=== PATIENT | male | born 1940 | race Two or more races ===

== ENCOUNTER 2021-08-23 13:23 | Inpatient (IN) | payer MEDICARE, MEDICAID ==
[2021-08-23] MEDS ORDERED: Sodium Chloride 0.9% 10 ML Syringe FLUSH PRN (13:26)
[2021-08-23] MEDS ORDERED: Sodium Chloride 0.9% 1,000 ML IV SCH (13:30)
[2021-08-23] MEDS ORDERED: cefTRIAXone 2 GM in Sodium Chloride 0.9% 100 ML IV ONE (15:07)
[2021-08-23] MEDS ORDERED: Sodium Chloride 0.9% 1,000 ML IV ONE (16:15)
[2021-08-23 16:32] LABS: CORONAVIRUS COVID-19 NAA POSITIVE (NEGATIVE)
[2021-08-23] MEDS ORDERED: Ondansetron 4 MG/2 ML SDV IV PRN (18:39)
[2021-08-23] MEDS ORDERED: Albuterol 0.083% 2.5 MG/3 ML Neb Soln NEB PRN (18:39)
[2021-08-23] MEDS: Dexamethasone 10 MG/ML SDV IVPUSH SCH (20:06)
[2021-08-23] MEDS: atorvaSTATin 20 MG Tab PO SCH (20:08)
[2021-08-23] MEDS ORDERED: LORazepam 2 MG/ML SDV IVPUSH PRN ×2 (20:20→23:50)
[2021-08-23] MEDS: Lactated Ringers 1,000 ML IV SCH (21:00)
[2021-08-23] MEDS: Insulin Lispro 100 Unit/ML 3 ML KwikPen SUBCUT SCH (22:30)
[2021-08-24 07:12] LABS: HEMOGLOBIN A1C 6.4 %
[2021-08-24] MEDS: Lactated Ringers 1,000 ML IV SCH ×3 (07:31→16:13)
[2021-08-24] MEDS: Insulin Lispro 100 Unit/ML 3 ML KwikPen SUBCUT SCH ×4 (08:41→21:42)
[2021-08-24] MEDS: HYDROmorphone 0.5 MG/0.5 ML Syringe IVPUSH PRN ×4 (08:42→20:16)
[2021-08-24] MEDS: Dexamethasone 10 MG/ML SDV IVPUSH SCH (08:43)
[2021-08-24] MEDS ORDERED: Enoxaparin 30 MG/0.3 ML Syringe SUBCUT SCH (09:00)
[2021-08-24] MEDS ORDERED: Enoxaparin 40 MG/0.4 ML Syringe SUBCUT SCH (09:00)
[2021-08-24] MEDS ORDERED: Zinc Sulfate 220 MG Cap PO SCH (13:00)
[2021-08-24] MEDS ORDERED: Heparin Sodium 5,000 Units/ML Vial IVPUSH ONE (13:15)
[2021-08-24] MEDS: Heparin Sodium/D5W 25,000 UNITS/500 ML BAG IV SCH (14:12)
[2021-08-24] MEDS: Azithromycin 500 MG in Sodium Chloride 0.9% 250 ML IV SCH (14:18)
[2021-08-24] MEDS: cefTRIAXone 2 GM in Sodium Chloride 0.9% 100 ML IV SCH (15:26)
[2021-08-24] MEDS: Dexamethasone 4 MG/ML SDV IV SCH (20:17)
[2021-08-24] MEDS: atorvaSTATin 20 MG Tab PO SCH ×2 (20:17→20:29)
[2021-08-24] MEDS: LORazepam 2 MG/ML SDV IVPUSH PRN (22:27)
[2021-08-25] MEDS: HYDROmorphone 0.5 MG/0.5 ML Syringe IVPUSH PRN ×8 (00:08→21:26)
[2021-08-25] MEDS: Insulin Lispro 100 Unit/ML 3 ML KwikPen SUBCUT SCH ×4 (08:40→21:30)
[2021-08-25] MEDS: Dexamethasone 4 MG/ML SDV IV SCH ×2 (08:41→21:25)
[2021-08-25] MEDS: QUEtiapine 25 MG Tab PO SCH ×2 (08:41→21:25)
[2021-08-25] MEDS ORDERED: Sennosides 8.6 MG Tab PO ONE (11:00)
[2021-08-25] MEDS ORDERED: REMDESIVIR 200 MG in Sodium Chloride 0.9% 250 ML IV ONE (12:00)
[2021-08-25] MEDS: Azithromycin 500 MG in Sodium Chloride 0.9% 250 ML IV SCH (14:04)
[2021-08-25] MEDS: cefTRIAXone 2 GM in Sodium Chloride 0.9% 100 ML IV SCH (15:22)
[2021-08-25] MEDS: LORazepam 2 MG/ML SDV IVPUSH PRN (15:47)
[2021-08-25] MEDS ORDERED: Heparin Sodium 5,000 Units/ML Vial IVPUSH ONE (16:45)
[2021-08-26] MEDS: HYDROmorphone 0.5 MG/0.5 ML Syringe IVPUSH PRN ×6 (00:44→22:07)
[2021-08-26] MEDS: Albuterol/Ipratropium 3.0-0.5 MG/3 ML Neb Soln NEB PRN ×2 (06:30→20:02)
[2021-08-26] MEDS: Insulin Lispro 100 Unit/ML 3 ML KwikPen SUBCUT SCH ×4 (07:08→21:05)
[2021-08-26] MEDS: Dexamethasone 4 MG/ML SDV IV SCH ×2 (09:18→20:15)
[2021-08-26] MEDS: QUEtiapine 25 MG Tab PO SCH ×2 (09:18→20:15)
[2021-08-26] MEDS: Cholecalciferol (Vitamin D3) 5,000 UNIT Tab PO SCH (09:18)
[2021-08-26] MEDS: REMDESIVIR 100 MG in Sodium Chloride 0.9% 250 ML IV SCH (13:00)
[2021-08-26] MEDS: Azithromycin 500 MG in Sodium Chloride 0.9% 250 ML IV SCH (14:56)
[2021-08-26] MEDS: Heparin Sodium/D5W 25,000 UNITS/500 ML BAG IV SCH (15:46)
[2021-08-26] MEDS: cefTRIAXone 2 GM in Sodium Chloride 0.9% 100 ML IV SCH (15:53)
[2021-08-26] MEDS: LORazepam 2 MG/ML SDV IVPUSH PRN (20:15)
[2021-08-27] MEDS: HYDROmorphone 0.5 MG/0.5 ML Syringe IVPUSH PRN ×9 (00:55→23:37)
[2021-08-27] MEDS: Insulin Lispro 100 Unit/ML 3 ML KwikPen SUBCUT SCH ×4 (08:38→21:08)
[2021-08-27] MEDS: Dexamethasone 4 MG/ML SDV IV SCH ×2 (08:39→20:01)
[2021-08-27] MEDS: Acetaminophen 325 MG Tab PO PRN (08:40)
[2021-08-27] MEDS: QUEtiapine 25 MG Tab PO SCH ×2 (08:41→20:01)
[2021-08-27] MEDS: Cholecalciferol (Vitamin D3) 5,000 UNIT Tab PO SCH (08:41)
[2021-08-27] MEDS: Enoxaparin 80 MG/0.8 ML Syringe SUBCUT SCH ×2 (11:14→21:09)
[2021-08-27] MEDS: REMDESIVIR 100 MG in Sodium Chloride 0.9% 250 ML IV SCH (11:17)
[2021-08-27] MEDS: cefTRIAXone 2 GM in Sodium Chloride 0.9% 100 ML IV SCH (14:09)
[2021-08-27] MEDS: Albuterol/Ipratropium 3.0-0.5 MG/3 ML Neb Soln NEB PRN (20:20)
[2021-08-28] MEDS: LORazepam 2 MG/ML SDV IVPUSH PRN ×5 (01:13→14:44)
[2021-08-28] MEDS: HYDROmorphone 0.5 MG/0.5 ML Syringe IVPUSH PRN ×7 (03:35→23:12)
[2021-08-28] MEDS: Cholecalciferol (Vitamin D3) 5,000 UNIT Tab PO SCH (08:00)
[2021-08-28] MEDS: Dexamethasone 4 MG/ML SDV IV SCH ×2 (08:00→20:17)
[2021-08-28] MEDS: QUEtiapine 25 MG Tab PO SCH ×2 (08:00→20:14)
[2021-08-28] MEDS: Insulin Lispro 100 Unit/ML 3 ML KwikPen SUBCUT SCH ×4 (08:02→23:14)
[2021-08-28] MEDS ORDERED: Magnesium Hydroxide 400 MG/5 ML Susp 30 ML Cup PO ONE (09:00)
[2021-08-28] MEDS ORDERED: Sodium Chloride 0.9% 0 ML ONE (10:44)
[2021-08-28] MEDS: Enoxaparin 80 MG/0.8 ML Syringe SUBCUT SCH ×2 (11:16→23:05)
[2021-08-28] MEDS: REMDESIVIR 100 MG in Sodium Chloride 0.9% 250 ML IV SCH (12:18)
[2021-08-28] MEDS: Acetaminophen 325 MG Tab PO PRN (20:18)
[2021-08-29] MEDS: Acetaminophen 325 MG Tab PO PRN ×3 (00:48→09:08)
[2021-08-29] MEDS: LORazepam 2 MG/ML SDV IVPUSH PRN ×3 (04:03→12:22)
[2021-08-29] MEDS: HYDROmorphone 0.5 MG/0.5 ML Syringe IVPUSH PRN ×6 (05:13→18:13)
[2021-08-29] MEDS: Albuterol/Ipratropium 3.0-0.5 MG/3 ML Neb Soln NEB PRN (08:45)
[2021-08-29] MEDS: Dexamethasone 4 MG/ML SDV IV SCH ×2 (09:07→20:22)
[2021-08-29] MEDS: Enoxaparin 80 MG/0.8 ML Syringe SUBCUT SCH (09:12)
[2021-08-29] MEDS: QUEtiapine 25 MG Tab PO SCH ×2 (09:12→20:01)
[2021-08-29] MEDS: Cholecalciferol (Vitamin D3) 5,000 UNIT Tab PO SCH (09:12)
[2021-08-29] MEDS: Insulin Lispro 100 Unit/ML 3 ML KwikPen SUBCUT SCH ×4 (09:13→21:27)
[2021-08-29] MEDS ORDERED: Bisacodyl 10 MG Supp RECTAL ONE (12:01)
[2021-08-29] MEDS: REMDESIVIR 100 MG in Sodium Chloride 0.9% 250 ML IV SCH (12:23)
[2021-08-29] MEDS ORDERED: OLANZapine 10 MG Vial IM ONE (19:45)
[2021-08-30] MEDS: Acetaminophen 325 MG Tab PO PRN ×3 (00:26→11:50)
[2021-08-30] MEDS: Enoxaparin 80 MG/0.8 ML Syringe SUBCUT SCH ×3 (00:36→21:10)
[2021-08-30] MEDS: HYDROmorphone 0.5 MG/0.5 ML Syringe IVPUSH PRN ×5 (03:17→22:28)
[2021-08-30] MEDS: Insulin Lispro 100 Unit/ML 3 ML KwikPen SUBCUT SCH ×3 (07:45→17:26)
[2021-08-30] MEDS: QUEtiapine 25 MG Tab PO SCH ×2 (07:48→10:36)
[2021-08-30] MEDS: Cholecalciferol (Vitamin D3) 5,000 UNIT Tab PO SCH ×2 (07:49→10:37)
[2021-08-30] MEDS: Dexamethasone 4 MG/ML SDV IV SCH ×3 (07:49→20:15)
[2021-08-30] MEDS: Albuterol/Ipratropium 3.0-0.5 MG/3 ML Neb Soln NEB PRN ×2 (13:35→19:46)
[2021-08-30] MEDS ORDERED: Dextrose 5%-Lactated Ringers 1,000 ML IV SCH (17:30)
[2021-08-30] MEDS: Acetaminophen 650 MG Supp RECTAL PRN (19:09)
[2021-08-30] MEDS: OLANZapine 10 MG Vial IM SCH (20:40)
[2021-08-31] MEDS: Insulin Lispro 100 Unit/ML 3 ML KwikPen SUBCUT SCH ×3 (00:23→13:19)
[2021-08-31] MEDS: Acetaminophen 650 MG Supp RECTAL PRN ×3 (00:52→23:34)
[2021-08-31] MEDS: HYDROmorphone 0.5 MG/0.5 ML Syringe IVPUSH PRN ×7 (02:45→23:30)
[2021-08-31] MEDS: Albuterol/Ipratropium 3.0-0.5 MG/3 ML Neb Soln NEB PRN (05:11)
[2021-08-31] MEDS: LORazepam 2 MG/ML SDV IVPUSH PRN ×2 (05:25→21:44)
[2021-08-31] MEDS: Dexamethasone 4 MG/ML SDV IV SCH ×2 (08:34→20:20)
[2021-08-31] MEDS: Enoxaparin 80 MG/0.8 ML Syringe SUBCUT SCH ×2 (09:41→21:44)
[2021-08-31] MEDS: OLANZapine 10 MG Vial IM SCH (20:34)
[2021-09-01] MEDS: LORazepam 2 MG/ML SDV IVPUSH PRN ×5 (01:16→19:33)
[2021-09-01] MEDS: HYDROmorphone 0.5 MG/0.5 ML Syringe IVPUSH PRN ×5 (02:46→21:19)
[2021-09-01] MEDS: Acetaminophen 650 MG Supp RECTAL PRN ×2 (05:49→10:48)
[2021-09-01] MEDS: Dexamethasone 4 MG/ML SDV IV SCH ×2 (08:23→20:09)
[2021-09-01] MEDS ORDERED: Scopolamine 1.5 MG Transdermal Patch TRDERM PRN (09:13)
[2021-09-01] MEDS: Enoxaparin 80 MG/0.8 ML Syringe SUBCUT SCH ×2 (09:51→21:19)
[2021-09-01] MEDS: OLANZapine 10 MG Vial IM SCH (20:04)
[2021-09-02] MEDS: HYDROmorphone 0.5 MG/0.5 ML Syringe IVPUSH PRN ×4 (03:54→21:28)
[2021-09-02] MEDS: LORazepam 2 MG/ML SDV IVPUSH PRN ×2 (06:36→12:34)
[2021-09-02] MEDS: Dexamethasone 4 MG/ML SDV IV SCH ×2 (08:27→21:27)
[2021-09-02] MEDS: Enoxaparin 80 MG/0.8 ML Syringe SUBCUT SCH ×2 (09:00→21:26)
[2021-09-02] MEDS ORDERED: Morphine 2 MG/ML SYRINGE IVPUSH PRN (12:26)
[2021-09-02] MEDS: OLANZapine 10 MG Vial IM SCH (21:17)
[2021-09-03] MEDS: HYDROmorphone 0.5 MG/0.5 ML Syringe IVPUSH PRN ×4 (09:03→18:43)
[2021-09-03] MEDS: Enoxaparin 80 MG/0.8 ML Syringe SUBCUT SCH ×3 (09:03→21:18)
[2021-09-03] MEDS ORDERED: Furosemide 20 MG/2 ML VIAL IVPUSH ONE (13:51)
[2021-09-03] MEDS: LORazepam 2 MG/ML SDV IVPUSH PRN (14:48)
[2021-09-03] MEDS: OLANZapine 10 MG Vial IM SCH (20:16)
[2021-09-04] MEDS: LORazepam 2 MG/ML SDV IVPUSH PRN (05:09)
[2021-09-04] MEDS: Enoxaparin 80 MG/0.8 ML Syringe SUBCUT SCH (10:17)
[2021-09-04 10:45] VITALS: BP 70/22; PULSE 37
== END 2021-09-04 15:00 | disposition expired | DRG 871 ==
LOC: JD.ED 13:23 → JD.MS 18:29
PROVIDERS: ADMIT Emergency Medicine; ATTEND Family Medicine
PROC: 8E0ZXY6 Isolation (ICD-10-PCS; principal; 2021-08-23)
PROC: 3E0333Z Introduction of Anti-inflammatory into Peripheral Vein, Percutaneous Approach (ICD-10-PCS; 2021-08-23)
PROC: XW033H5 Introduction of Tocilizumab into Peripheral Vein, Percutaneous Approach, New Technology Group 5 (ICD-10-PCS; 2021-08-24)
PROC: XW033E5 Introduction of Remdesivir Anti-infective into Peripheral Vein, Percutaneous Approach, New Technology Group 5 (ICD-10-PCS; 2021-08-25)
PROC: 5A0955A Assistance with Respiratory Ventilation, Greater than 96 Consecutive Hours, High Flow/Velocity Cannula (ICD-10-PCS; 2021-08-28)
PROC: 0DH67UZ Insertion of Feeding Device into Stomach, Via Natural or Artificial Opening (ICD-10-PCS; 2021-08-29)
DX: A41.9 Sepsis, unspecified organism (principal); U07.1 COVID-19; J12.82 Pneumonia due to coronavirus disease 2019; R77.8 Other specified abnormalities of plasma proteins; I21.A1 Myocardial infarction type 2; G93.49 Other encephalopathy; N17.9 Acute kidney failure, unspecified; E87.2 Acidosis; R73.9 Hyperglycemia, unspecified; Z51.5 Encounter for palliative care; T18.9XXA Foreign body of alimentary tract, part unspecified, initial encounter; Z66 Do not resuscitate; E78.00 Pure hypercholesterolemia, unspecified; Z23 Encounter for immunization; Z99.3 Dependence on wheelchair; I10 Essential (primary) hypertension; E86.0 Dehydration; N28.89 Other specified disorders of kidney and ureter; R73.03 Prediabetes; E55.9 Vitamin D deficiency, unspecified; R29.6 Repeated falls; M17.9 Osteoarthritis of knee, unspecified; R45.1 Restlessness and agitation; R79.1 Abnormal coagulation profile; R29.810 Facial weakness; K14.9 Disease of tongue, unspecified; S70.02XA Contusion of left hip, initial encounter; G47.31 Primary central sleep apnea; H54.7 Unspecified visual loss; Z79.899 Other long term (current) drug therapy; Z91.14 Patient's other noncompliance with medication regimen; W19.XXXA Unspecified fall, initial encounter
CPT/HCPCS: 0240U; 36415; 51702; 70450; 71045; 73502; 80053; 82306; 82947; 83036; 83605; 83690; 83735; 83880; 84100; 84145; 84484; 85025; 85379; 85610; 85730; 86140; 87040; 92526; 92610; 93005; 94640; 94660; 94762; 96365; 97110; 97162; 99285; 93010; 99223; 99232; 99233; 99238; A9270-GY; J0456; J0696; J1100; J1170; J1644; J1650; J1815; J1940; J2060; J2270; J3490; J7030; J7050; J7120; J7121; J7620-GY; M0249; Q0249